=== PATIENT | male | born 1980 | race Hispanic/Latino ===

== ENCOUNTER 2019-04-19 09:54 | Outpatient (CLI) | payer OTHER ==
--- NOTE | 2019-04-19 12:08 | ULT ---
SCROTAL SONOGRAM WITH DUPLEX EVALUATION: Date: 04/19/2019 HISTORY: Right scrotal mass. FINDINGS: Right testicle measures up to 3.8 cm and the left 3.8 cm. Each has a normal echotexture. Good color a nd spectral Doppler flow. Each epididymidis is within normal limits. No focal mass. IMPRESSION: Normal exam. POS: ISAB[facility]LLA
== END 2019-04-19 09:55 | disposition home or self-care (01) ==
LOC: MADULT 09:54
PROVIDERS: ATTEND Family Medicine
DX: N49.2 Inflammatory disorders of scrotum (principal)
CPT/HCPCS: 76870; 93976